=== PATIENT | female | born 1960 | race Caucasian/White ===

== ENCOUNTER 2016-09-21 07:24 | Day surgery (SDC) | payer BC ==
[2016-09-18 10:14] LABS: HEMATOCRIT 37.4 % (36.0-48.0); HEMOGLOBIN 12.2 g/dL (12.0-16.0)
[2016-09-18 10:27] LABS: ALBUMIN 3.7 G/DL (3.5-5.0); ALKALINE PHOSPHATASE 42 U/L (45-117); BUN (BLOOD UREA NITROGEN) 13 MG/DL (6-23); CALCIUM, SERUM 9.2 MG/DL (8.5-10.4); CHLORIDE, SERUM 104 MMOL/L (96-112); CO2 (CARBON DIOXIDE) 28 MMOL/L (24-34); CREATININE 0.86 MG/DL (0.55-1.02); DIRECT BILIRUBIN < 0.1 MG/DL (0.0-0.4); GFR AFRICAN AMERICAN 88 ML/MIN (>=60); GFR NON AFRICAN AMERICAN 76 ML/MIN (>=60); GLUCOSE, SERUM 106 MG/DL (60-99); INDIRECT BILIRUBIN(NOT ORDER) 0.2 MG/DL (0.1-0.9); POTASSIUM, SERUM 4.4 MMOL/L (3.5-5.3); SGOT(AST) 15 U/L (5-40); SGPT(ALT) 26 U/L (5-65); SODIUM, SERUM 137 MMOL/L (135-148); TOTAL BILIRUBIN 0.3 MG/DL (0-1.2); TOTAL PROTEIN 7.9 G/DL (6.0-8.5)
[~2016-09-21] VITALS: Ht 157.5 cm; Wt 108.9 kg
--- NOTE | ~2016-09-21 | OP ---
Record Of Operation [facility] [address] [place]. [address] NAME: JASON TANG : 58 STATUS : [facility]#: [id number] AGE: 55 ADM/REG DATE : 09/21/16 MR#: [id number] REPORT SERV DATE: 09/21/16 DICTATED BY: LANDON WEBER DATE: 09/21/16 REPORT STATUS : Draft TRANSCRIBED BY: MODL DATE: 09/21/16 DATE OF PROCEDURE: 09/21/2016 PREOPERATIVE DIAGNOSES: Right suprascapular neuropathy, rotator cuff tear, biceps tendinitis, acromioclavicular pain. POSTOPERATIVE DIAGNOSES: Right suprascapular neuropathy, rotator cuff tear, biceps tendinitis, acromioclavicular pain, plus impingement. PROCEDURES: Right suprascapular nerve release, biceps tendolysis, extensive debridement, rotator cuff repair, subacromial decompression, and distal clavicle resection. SURGEON: Landon Weber M.D. COMPLICATIONS: None. ANESTHESIA: General endotracheal without interscalene block secondary to cervical pathology. INDICATIONS: This 55-year-old female, had severe shoulder pain and had failed nonoperative management of the above-mentioned condition. She had MRI documented a full-thickness cuff tear. She wished to proceed with operative intervention. DESCRIPTION OF PROCEDURE: After discussion of the above procedure, the patient was induced in supine position. She was taken to the beach-chair position with care to maintain the cervical lordosis. A time-out protocol was enforced. Ancef was administered. Right upper extremity was prepped and draped in the standard surgical fashion. Posterolateral portal was created for diagnostic arthroscopy, which revealed well-preserved cartilaginous surfaces, severe extra-articular biceps tenosynovitis, and fraying of the superior labrum with synovitis throughout the glenohumeral joint. Very synovitic bursal space. The articular side and the bursal side at first glance appeared intact, but there was a 90% intrasubstance tear that was found on palpation. She had a very tight acromiohumeral space as well. Debridement with 5.5 cannula was localized with an outside-in spinal technique. We released the tight rotator interval with the ablator. We released the biceps and allowed it to retract extra-articularly, the ablator was used to debride the synovitis anteriorly, superiorly, and posteriorly in the glenohumeral joint and the labrum was debrided with a shaver. Subacromial decompression: The arthroscopic cannula was then removed from the posterior shoulder and redirected in the subacromial space. The metal trocar was inserted and the cannula was advanced out the anterior superior portal creating an outflow portal with outside in technique. A lateral portal was then created after spinal needle localization and a skin incision was made with an 11-blade. A large 5-5 shaver was then introduced into the joint from lateral and its tip was well visualized in the bursa. A bursectomy was Record Of Operation [facility] [id number] [facility] [place]. [address] NAME: JASON TANG : 58 STATUS : [facility]#: [id number] AGE: 55 ADM/REG DATE : 09/21/16 MR#: [id number] REPORT SERV DATE: 09/21/16 DICTATED BY: LANDON WEBER DATE: 09/21/16 REPORT STATUS : Draft TRANSCRIBED BY: MARYA DATE: 09/21/16 performed going from lateral to medial allowing visualization of the rotator cuff and undersurface of the acromion. Coagulation was achieved with a 90-degree electrothermal device and the undersurface of the CA ligament was recessed with the tissue ablator. Bur was then introduced laterally and acromioplasty was performed smoothing the acromion from a type I morphology. This was begun laterally and advanced medially. The AC joint was then checked for spurs and these were smoothed. The soft tissue decompression was carried out anteriorly, laterally and superiorly. The scope was then withdrawn and placed into the lateral portal and the cutting-block technique was used with the instrumentation from posterior to assure that a perfect acromioplasty had been performed. Decompression then underwent the final check by forward flexing the arm again to check for impingement. Attention was then turned to the resection of the AC joint. Looking from posteriorly, the compartment of the AC joint was entered and a laterally placed tissue ablator was utilized to debride fat and coagulate bleeders under the AC joint. A bur was introduced and the undersurface of the AC joint was co-planed from lateral to medial. Palpation on the clavicle allowed visualization of the AC joint and disc. A spinal needle directed from anteriorly allowed localization of the AC joint and a 12-flute bur was introduced anteriorly. This bur was utilized to resect approximately 1 cm on the clavicle from anterior to posterior. 2mm were then taken off the acromial side. Care was taken to insure that a level cut was made at the anterior and posterior junctions of the AC joint and the anterior and posterior AC ligaments were recessed prior to this with a tissue ablator preserving their structure. The scope was then placed in the lateral portal and again the AC joint was visualized anteriorly and posteriorly with inferiorly directed pressure insuring an adequate superior decompression. The posterior aspect of the joint was then checked with a scope in the anterior portal and an accessory posterior portal was created and utilized to recess the posterior spur with a bur. No [id number]-[id number] contact at the AC joint was present after resection. Suprascapular nerve current release: We made accessory portals anterior lateral and direct lateral. We dissected over past the AC joint. There was a very tight scarring in this area and the angles in the shoulder were somewhat more difficult than usual, but we were able to use two transtrapezial portals to get switching stick retractors at the appropriate location. The ASTL device was then used. We dissected through the scarred and accessory insertions of the CC ligaments to find the suprascapular artery. A 70-degree scope was then used to release the suprascapular nerve under direct visualization. Rotator cuff repair: We palpated the cuff and it was clear on MRI that there was a tear, but the bursal strands were just barely intact. We opened with a longitudinal rent with an L-shaped rent with an 11 blade, and there was a large tear of the supra and infraspinatus. It was almost exclusively intrasubstance. We placed a triple loaded Berger and [employer]crew and used [place] from the posterior side and [place] from the anterior side, these knots were tied and then we used two [place] down though and lateral for a transosseous equivalent technique. The scope was withdrawn. The portals were closed with Monocryl. Steri-Strips were applied. The patient tolerated the procedure well. She was taken to PACU in stable condition. POSTOP PLAN: Medium cuff tear protocol. Record Of Operation [facility] [address] [facility] [place]. [address] NAME: JASON TANG : 58 STATUS : [facility] PAT#: [id number] AGE: 55 ADM/REG DATE : 09/21/16 MR#: [id number] REPORT SERV DATE: 09/21/16 DICTATED BY: LANDON WEBER DATE: 09/21/16 REPORT STATUS : Draft TRANSCRIBED BY: MODL DATE: 09/21/16 BSS/MODL Landon Weber M.D. / [id number] CC: Nicko Sinha M.D.
[~2016-09-21 07:24] MED LIST: ADVIL PO; AMIT25 PO; AMITIZA24 PO; AMOXIL500 MG PO; ATV1 PO; AUG500 PO; BENTYL20 PO; BISR PR; BREO ELLIPTA INH; CARASPUDL; CARASPUDL PO; CREON DR 36,001 EACH PO; CREON24000 UNT PO; DIL2AMP IM; DIL2TAB PO; DILAUDID-51 MG/ML PO; I-PRIN200 MG PO; INHALER PO; KEFLEX PO; MEDROLPAK4 PO; METHOC750B PO; MOMUD PO; NASONEX NAS; NORCO1 TA2 PO; PCET PO; PERCOCET1 TA2 PO; PR25 PO; PREV15 PO; PREV30 PO; PRILOSEC40 MG PO; PROTONIX PO; QUESLITE PO; RANITIDINE300 MG PO; REG5 PO; ROCEPH IM; SUCR PO; TEGRETOL100 MG PO; TORATAB PO; XIFAXAN550 MG PO; XODOL 7.5-3001 EACH PO; XOPENEX HFA INH; ZANTAC300 MG PO; ZOFRAN ODT4 MG PO; ZOFRANODT8 PO; [UNRECOGNIZED DRUG - CODE] PR; [UNRECOGNIZED DRUG - OTHER] PO; [UNRECOGNIZED DRUG - REMARK] PO
== END 2016-09-21 19:54 | disposition home or self-care (01) ==
LOC: SDC 07:24
PROVIDERS: Orthopaedic Surgery Sports Medicine
PROC: 0RNJ4ZZ Release Right Shoulder Joint, Percutaneous Endoscopic Approach (ICD-10-PCS; 2016-09-21)
PROC: 0RNJ4ZZ Release Right Shoulder Joint, Percutaneous Endoscopic Approach (ICD-10-PCS; 2016-09-21)
PROC: 0LQ14ZZ Repair Right Shoulder Tendon, Percutaneous Endoscopic Approach (ICD-10-PCS; principal; 2016-09-21 09:45)
PROC: 0LS14ZZ Reposition Right Shoulder Tendon, Percutaneous Endoscopic Approach (ICD-10-PCS; 2016-09-21 09:45)
DX: M75.111 Incomplete rotator cuff tear or rupture of right shoulder, not specified as traumatic (principal); M77.8 Other enthesopathies, not elsewhere classified; M25.811 Other specified joint disorders, right shoulder; M65.821 Other synovitis and tenosynovitis, right upper arm; M48.00 Spinal stenosis, site unspecified; J45.909 Unspecified asthma, uncomplicated; J42 Unspecified chronic bronchitis; K58.9 Irritable bowel syndrome, unspecified; K21.9 Gastro-esophageal reflux disease without esophagitis; K57.92 Diverticulitis of intestine, part unspecified, without perforation or abscess without bleeding; G56.03 Carpal tunnel syndrome, bilateral upper limbs; R16.0 Hepatomegaly, not elsewhere classified; Z79.51 Long term (current) use of inhaled steroids; Z79.899 Other long term (current) drug therapy; Z88.2 Allergy status to sulfonamides; Z88.5 Allergy status to narcotic agent; Z88.6 Allergy status to analgesic agent; Z88.1 Allergy status to other antibiotic agents; Z98.51 Tubal ligation status; Z90.49 Acquired absence of other specified parts of digestive tract; Z98.890 Other specified postprocedural states; Z85.07 Personal history of malignant neoplasm of pancreas; Z98.1 Arthrodesis status
CPT/HCPCS: 80048; 80076; 85014; 85018; A9270-GY; C1713; J0690; J1170; J2250; J2370; J2405; J2550; J2710; J3010